=== PATIENT | male | born 1940 | race Caucasian/White ===

== ENCOUNTER 2019-05-04 11:09 | Inpatient (IN) | payer MEDICARE, SELFPAY ==
[2019-05-04] VITALS (11 sets, daily range): BP systolic 131–175; BP diastolic 86–105; PULSE 59–105; RESP 16–20; TEMP 36.4–36.6; O2SAT 96–99; BMI 28.9; BMI 28.4
--- NOTE | 2019-05-04 11:54 | CT_ITS ---
STUDY: CT BRAIN WITHOUT CONTRAST REASON FOR EXAM: Male, 78 years old. RADIATION DOSAGE (If Supplied By Facility): CTDIvol = ( 44.99 ) mGy, DLP = ( 796.11 ) mGycm TECHNIQUE: Transaxial CT imaging of the brain was performed without administration of intravenous contrast material. Individualized dose optimization techniques were used for this CT. COMPARISON: No relevant priors. FINDINGS: Normal soft tissue structures. Normal calvarium. There is mild cerebral atrophy with widening of the extra-axial spaces and ventricular dilatation. Normal white matter tracts of the cerebral hemispheres. There are small punctate calcifications of the basal ganglia which are seen in the aging brain as a normal variant. Normal brainstem. Normal cerebellum. There is no intracranial hemorrhage. There are no findings of an acute ischemic infarction. Atherosclerotic calcification of the cavernous portions of the internal carotid arteries bilaterally. Normal visualized paranasal sinuses. CT/Brain/Head without Contrast IMPRESSION: Chronic involutional changes of the brain. Electronically Signed: Joe Mcginnis, at 14:08 EDT , Service support ,
--- NOTE | 2019-05-04 11:54 | ED.VISSUMM ---
- ER Visit Summary Date of Service: 05/04/19 Chief Complaint: Syncope History of Present Illness: The patient is a 78 M who presents with a syncopal episode that occurred today. Patient was checking out at his orthopedic physician's office when he felt nauseated and broke out into a sweat. Patient states he sat down and then became unresponsive. Patient was found by and staff in the orthopedic office and was unresponsive. EMS arrived on scene and was unable to palpate a pulse. They stated the patient was breathing the entire time they saw him. EMS states he then woke up and has been awake and alert ever since. states his last approximate 5 to 10 minutes. CPR was never initiated. Currently, patient denies any symptoms. Physical Examination: Vital signs are stable. Patient is afebrile. Patient is in no acute distress. Oral mucosa is pink and moist. Neck is supple. Trachea is midline. There is no JVD noted. Heart was regular rate and rhythm. Lungs are clear and equal bilateral. Abdomen is soft. Bowel sounds are normal. There is no tenderness. There is no guarding noted. Skin is warm dry. Cranial nerves II through XII are intact. There are no focal motor or sensory deficits noted. The remaining physical exam is within normal limits. Test Results: EKG showed normal sinus rhythm with a rate of 61. There are no acute ST or T wave changes. BC, comprehensive metabolic profile, PT with INR, troponin were obtained and were all within normal limits. Urinalysis shows evidence of urinary tract infection with leukocyte esterase of 500 point, positive nitrites, and greater than [address] scan of the brain was obtained and was negative. PA and lateral chest x-ray was obtained and was negative. CTA of the chest was obtained and does not show any evidence of pulmonary embolism. Emergency Department Course and Treatment: Patient was stable during his emergency department stay. Urine culture was ordered. Patient was started on Rocephin. Given his syncopal episode with loss of pulses, I feel patient should be admitted to the hospital for further evaluation of his syncope. Case was discussed with the hospitalist. Patient will be admitted to the hospital. Disposition: Admit to hospital Impression: 1. Syncope 2. Urinary tract infection This note was generated with Myworldwallation software. It may contain incorrect words, spelling, and punctuation that were not noted in review of the chart prior to signing ED Disposition - Plan for ED Patient: Disposition: Acute Care Hospital [facility] Diagnosis: Syncope and collapse, Urinary tract infection Referrals: Joon Blunt MD [Primary Care Provider] -
--- NOTE | 2019-05-04 11:55 | EKG12_ITS ---
Test Reason : SYNCOPE Blood Pressure : / mmHG Vent. Rate : 061 BPM Atrial Rate : 061 BPM P-R Int : 200 ms QRS Dur : 072 ms QT Int : 432 ms P-R-T Axes : 000 003 049 degrees QTc Int : 434 ms Normal sinus rhythm Normal ECG No previous ECGs available Confirmed by CHRISTA MUSTAFA ([id number]), city editor IRAM GONZALES ([id number]) on 05/17/2019 2:03:32 PM Referred By: Sergio Schulz Confirmed By:CHRISTA MUSTAFA
--- NOTE | 2019-05-04 11:56 | CT_ITS ---
STUDY: CTA CHEST REASON FOR EXAM: Male, 78 years old. Syncopal episode. RADIATION DOSAGE (If Supplied By Facility): CTDIvol = ( 13.80 ) mGy, DLP = ( 487.96 ) mGycm TECHNIQUE: The examination was performed with the intravenous administration of 100ML IV Isovue 370. Post-processing of the angiographic images was performed, with multiplanar reformation and 3D reconstruction. Individualized dose optimization techniques were used for this CT. COMPARISON: None. FINDINGS: Normal enhancement of the main pulmonary artery and right and left pulmonary arteries. Normal enhancement of the bilateral peripheral pulmonary arteries. There is no demonstrated pulmonary embolism. Normal thoracic aorta and visualized great vessels. There is no demonstrated aortic dissection. There are calcifications of the coronary arteries. Normal mediastinum. Normal hilar regions. Normal visualized trachea and bronchi. The lungs are well expanded. Normal pulmonary parenchyma. Normal pleura. Normal chest wall structures. There are degenerative changes of thoracic spine. Normal visualized upper abdomen. CT/CTA Chest W/WO Contrast IMPRESSION: No acute abnormality is seen. Electronically Signed: Joe Mcginnis, at 14:18 EDT , Service support ,
[2019-05-04] MEDS: 0.9% Normal Saline 1,000 ML 1000 ML IV (12:23)
[2019-05-04] MEDS: Morphine 4 MG/ML Syringe IV (12:40)
[2019-05-04 13:11] LABS: Absolute Lymphocyte Count 1.23 X10^3/uL (0.83-4.51); Absolute Neutrophil Count 7.7 X10^3/uL (2.0-7.7); Basophil# 0.06 X10^3/uL; Basophil% 0.6 % (0-1); Eosinophil# 0.02 X10^3/uL; Eosinophils% 0.2 % (0-5); Hematocrit 43.2 % (40-54); Hemoglobin 14.4 g/dL (13.0-16.5); Lymphocyte # 1.23 X10^3/ul (4.0); Lymphocyte % 12.6 % (19-41); Mean Corp Hgb Conc 33.3 g/dL (32-36); Mean Corpuscular Hgb 28.7 pg (27.0-32.0); Mean Corpuscular Volume 86.2 fL (80-94); Mean Platelet Vol. 9.5 fl (6.2-12.0); Monocyte# 0.74 X10^3/uL; Monocyte% 7.6 % (0-10); NRBC Flagged by Analyzer 0 % (0-5); Neutrophil # 7.67 X10^3/uL (2.7-7.7); Neutrophil % 78.2 % (47-70); Platelet Count 247 K/mm3 (150-450); RBC Distribution Width CV 12.3 % (11.6-14.6); RBC Distribution Width SD 38.5 fl (35.1-43.9); Red Blood Count 5.01 M/mm3 (4.6-6.2); White Blood Count 9.8 K/mm3 (4.4-11.0)
[2019-05-04 13:26] LABS: ALB/GLOB Ratio 1.2 RATIO (0.9-2.4); AST(SGOT) 10 U/L (15-37); Alanine Aminotransfer ALT/SGPT 23 U/L (16-61); Albumin, Serum 3.5 g/dL (3.2-5.0); Alkaline Phosphatase 42 U/L (45-117); Anion Gap 7 (5-15); BUN 14 mg/dL (7-18); BUN/Creat Ratio 15.5 RATIO (10-20); Calcium,Total 8.3 mg/dL (8.5-10.1); Chloride 104 mmol/L (98-107); EST Glomerular Filtration Rate 86 mL/min (>60); Est Glom Filt Rate - Afr Amer 105 mL/min (>60); Estimated Creatinine Clearance 69.85 ml/min; Globulin 2.9 g/dL (2.2-4.2); Glucose 106 mg/dL (74-106); Potassium 4.5 mmol/L (3.5-5.1); Protein, Total 6.4 g/dL (6.4-8.2); Sodium Level 138 mmol/L (136-145)
[2019-05-04 13:27] LABS: Partial Thromboplast Time 26.3 Seconds (24.1-36.2); Prothrombin Time (Protime)PT. 13.2 SECONDS (11.7-14.9)
--- NOTE | 2019-05-04 14:00 | RAD_ITS ---
STUDY: X-RAY CHEST REASON FOR EXAM: Male, 78 years old. Shortness of breath. TECHNIQUE: PA and lateral views of the chest. COMPARISON: None. FINDINGS: EKG electrodes are seen. The lungs are clear and expanded. There is no demonstrated pleural abnormality. Normal size heart. Normal mediastinum and celsa. Normal visualized pulmonary arteries. There is atherosclerotic tortuosity of the aortic arch and descending thoracic aorta. There are diffuse degenerative changes of the visualized thoracic spine. Normal visualized ribs, clavicles, and shoulders. There is no demonstrated abnormality of the visualized soft tissue structures of the upper abdomen. RAD/Chest PA and Lateral IMPRESSION: No acute abnormality is seen. Electronically Signed: Joe Mcginnis, at 14:37 EDT , Service support ,
[2019-05-04 14:25] LABS: Mucous, Urine 0 SEEN /hpf (<or=2+); Red Blood Cells-Urine 0 SEEN /hpf (0-5); Squamous Epithelial Cells - UA 0 SEEN /hpf (0-5)
[2019-05-04 14:26] LABS: Color, Urine Yellow (Yellow); Glucose, Dipstick Normal (Normal); Ketone-Dipstick Negative (Negative); Leukocyte Esterase-Dipstick 500 /ul (Negative); Nitrite-Dipstick Positive (Negative); Occult Blood-Urine 50 /ul (Negative); Protein-Dipstick 30 mg/dl (Negative); Urine Bilirubin Dipstick Negative (Negative); Urine Clarity Sl. Cloudy (Clear); Urine Urobilinogen Normal (Normal)
[2019-05-04 14:37] LABS: Bacteria RARE /hpf (None Seen); White Blood Cells >100 SEEN /hpf (0-5)
[2019-05-04] MEDS: Ceftriaxone 1 GM/50 ML BAG IV (15:18)
--- NOTE | 2019-05-04 16:37 | HP.PCM_ITS ---
<Niranjan Heart - Last Filed: 05/04/19 16:37> Problem List (1) Urinary tract infection Status: Acute (2) Syncope and collapse Status: Acute (3) DDD (degenerative disc disease) Status: Chronic (4) BPH (benign prostatic hyperplasia) Status: Chronic History of Present Illness Date of Admission: 05/04/19 Chief Complaint: syncope The patient is a 78 year old M with past medical history of chronic back pain, BPH, recent opiate induced constipation and urinary retention, who presents to the emergency room with a syncopal episode. The patient was in to see the orthopedic surgeons today for ongoing issues with sciatica related to degenerative disc disease. While he was in the office waiting to check out he became nauseous and felt like he needed to sit down. After sitting down he slumped over in the chair and became unresponsive. The estimates he was in the chair somewhere between 5 to 10 minutes unresponsive. The emergency squad was called who lowered him to the floor. After he was lowered he came conscious and return to his normal state. The patient was brought to the emergency room a nd was found to have a urinary tract infection. He does admit that he has had dysuria since his last catheter was placed. Again he had a catheter placed when he developed urinary retention while on opiate pain medications for his back. He was referred to urology as an outpatient he left the Shirley in for a week, it was removed last . Also of note he is currently on Valtrex for left right lower extremity zoster rash. [] Past Medical History Past Medical History (Chronic Problems): Chronic Problems DDD (degenerative disc disease) (Chronic) BPH (benign prostatic hyperplasia) (Chronic) Allergies No Known Allergies Allergy (Verified 05/04/19 11:10) Home Medications: Ambulatory Orders Medication Instructions Recorded Acetaminophen [Tylenol Extra 500 - 1,000 mg PO Q8H PRN 05/04/19 Strength] Cholecalciferol (Vitamin D3) 400 unit PO DAILY 05/04/19 [Vitamin D3] Diazepam [Valium] 10 mg PO UD PRN 05/04/19 Docusate Sodium [Stool Softener] 200 mg PO DAILY 05/04/19 Finasteride [Proscar] 5 mg PO DAILY 05/04/19 Gabapentin [Neurontin] 300 mg PO BID 05/04/19 Magnesium Oxide [Magnesium] 500 mg PO DAILY 05/04/19 Niacin 500 mg PO DAILY 05/04/19 Polyethylene Glycol 3350 [Miralax] 17 gm PO DAILY 05/04/19 Valacyclovir HCl [Valtrex] 2,000 mg PO DAILY 05/04/19 Surgical History: tonsillectomy Psychiatric History: No pertinent psych hx Lives: Spouse/ Significant Other Smoking Status: Former smoker Tobacco Use: Chew, Pipe Alcohol: None Drugs: None - *Family History Maternal History Items: Heart Disease Paternal History Items: - Review of Systems Constitutional: Denies: Chills, Fever, Weight Change HEENT: Denies: Head Aches, Sinus Congestion, Sinus Drainage Cardiovascular: Reports: Syncope. Denies: Chest Pain, Chest Pressure, Chest Tightness, Heaviness, Light Headedness, Palpitations Respiratory: Denies: Cough, Shortness of Breath, Shortness of breath at rest, Sputum production Gastrointestinal: Denies: Abdominal Pain, Nausea, Vomiting Genitourinary: Denies: Dysuria Musculoskeletal: Denies: Joint Pain, Joint Tenderness Skin: Reports: Rash - Right lower extremity with severe pain. Denies: Wounds Neurological: Denies: Numbness, Tingling, Focal weakness Psychiatric: Denies: Anxiety, Depression, Homicidal Ideations, Suicidal Ideations Hematologic/ Lymphatic: Denies: Easy Bruising, Easy Bleeding VTE Information - Inpt Only VTE Present on Admission: No VTE Mechan Device Prophylaxis: None VTE Pharm Prophylaxis ordered?: Yes Patient Problems: Active and Suspected Problems Syncope and collapse (Acute) Urinary tract infection (Acute) - Physical Exam General: Alert, Oriented x3, Cooperative HEENT: Atraumatic, PERRLA, EOMI, Normocephalic Neck: Supple, No JVD, Negative Carotid Bruits Lungs: Clear to auscultation, Normal air movement Cardiovascular: Regular rate, No murmurs Abdomen: Bowel Sounds Present, Soft, Non Tender Extremities: No edema, Capillary Refill Less than 3 Seconds Skin: No rashes, No breakdown, - - Zoster rash right lower extremity. Musculoskeletal: No Tenderness to Palpation of Joints or Extremities Neurological: Cranial nerves II-XII grossly intact Psych/Mental Status: Normal Affect, Appropriate Vital Signs Temp Pulse Resp BP Pulse Ox 97.8 F 79 20 H 147/98 H 97 05/04/19 11:10 05/04/19 15:00 05/04/19 15:00 05/04/19 15:00 05/04/19 15:00 Oxygen Delivery Method Room Air Weight: 201 lb 11.567 oz Body Mass Index (BMI) 28.9 Laboratory Tests Past 24 Hrs 05/04/19 05/04/19 05/04/19 12:50 12:50 12:50 WBC 9.8 RBC 5.01 Hgb 14.4 Hct 43.2 MCV 86.2 MCH 28.7 MCHC 33.3 RDW Std Deviation 38.5 RDW Coeff of [place]ine[place] 12.3 Plt Count 247 MPV 9.5 Immature Gran % (Auto) 0.800 Neut % (Auto) 78.2 H Lymph % (Auto) 12.6 L [place] % (Auto) 7.6 Eos % (Auto) 0.2 Baso % (Auto) 0.6 Absolute Neuts (auto) 7.7 Absolute Lymphs (auto) 1.23 Nucleated RBC % 0 PT 13.2 INR 1.0 APTT 26.3 Sodium 138 Potassium 4.5 Chloride 104 Carbon Dioxide 27.0 Anion Gap 7 BUN 14 Creatinine 0.90 Estim Creat Clear Calc 69.85 Est GFR (MDRD) Af Amer 105 Est GFR (MDRD) Non-Af 86 BUN/Creatinine Ratio 15.5 Glucose 106 Calcium 8.3 L Total Bilirubin 0.60 AST 10 L ALT 23 Alkaline Phosphatase 42 L Troponin I < 0.015 Total Protein 6.4 Albumin 3.5 Globulin 2.9 Albumin/Globulin Ratio 1.2 Urine Color Urine Clarity Urine pH Ur Specific [place] Urine Protein Urine Glucose (UA) Urine Ketones Urine Occult Blood Urine Nitrite Urine Bilirubin Urine Urobilinogen Ur Leukocyte Esterase Urine RBC Urine WBC Ur Squamous Epith Cells Urine Bacteria Urine Mucus 05/04/19 14:20 WBC RBC Hgb Hct MCV MCH MCHC RDW Std Deviation RDW Coeff of [place] Plt Count MPV Immature Gran % (Auto) Neut % (Auto) Lymph % (Auto) [place] % (Auto) Eos % (Auto) Baso % (Auto) Absolute Neuts (auto) Absolute Lymphs (auto) Nucleated RBC % PT INR APTT Sodium Potassium Chloride Carbon Dioxide Anion Gap BUN Creatinine Estim Creat Clear Calc Est GFR (MDRD) Af Amer Est GFR (MDRD) Non-Af BUN/Creatinine Ratio Glucose Calcium Total Bilirubin AST ALT Alkaline Phosphatase Troponin I Total Protein Albumin Globulin Albumin/Globulin Ratio Urine Color Yellow Urine Clarity Sl. Cloudy Urine pH 7.0 Ur Specific [place] 1.010 Urine Protein 30 H Urine Glucose (UA) Normal Urine Ketones Negative Urine Occult Blood 50 H Urine Nitrite Positive H Urine Bilirubin Negative Urine Urobilinogen Normal Ur Leukocyte Esterase 500 H Urine RBC 0 SEEN Urine WBC >100 SEEN Ur Squamous Epith Cells 0 SEEN Urine Bacteria RARE Urine Mucus 0 SEEN Assessment/Plan All Active Problems Syncope and collapse (Acute) Urinary tract infection (Acute) 1. Syncope-suspect secondary to vasovagal, urinary tract infection, urinary retention-provide Rocephin maintain on telemetry, EKG unremarkable, obtain echo in the morning. Check orthostatic vitals. 2. Recent urinary tract infection requiring catheterization secondary to opiate use-we will bladder scan, Place Shirley if necessary, follow-up with urology as an outpatient. 3. BPH-continue Proscar 4. Herpes zoster-right lower extremity rash, continue contact precautions and Valtrex, gabapentin for herpetic neuropathy 5. Chronic back pain, DDD-following Dr. Pierce as an outpatient, plans for MRI as an outpatient, PT OT as an outpatient. DVT prophylaxis: Lovenox DC planning: PT OT eval's given #5 This patient was seen by Niranjan Heart PA-C under the supervision of Doctor Zeus. <Sergio Schulz - Last Filed: 05/04/19 17:01> History of Present Illness The patient is a 78 year old M [] Past Medical History Allergies No Known Allergies Allergy (Verified 05/04/19 11:10) - Physical Exam Vital Signs Temp Pulse Resp BP Pulse Ox 97.9 F 76 16 175/95 H 99 05/04/19 16:57 05/04/19 16:57 05/04/19 16:57 05/04/19 16:57 05/04/19 16:57 Oxygen Delivery Method Room Air Weight: 91.5 kg Body Mass Index (BMI) 28.9 Laboratory Tests Past 24 Hrs 05/04/19 05/04/19 05/04/19 12:50 12:50 12:50 WBC 9.8 RBC 5.01 Hgb 14.4 Hct 43.2 MCV 86.2 MCH 28.7 MCHC 33.3 RDW Std Deviation 38.5 RDW Coeff of [place]ine[place] 12.3 Plt Count 247 MPV 9.5 Immature Gran % (Auto) 0.800 Neut % (Auto) 78.2 H Lymph % (Auto) 12.6 L [place] % (Auto) 7.6 Eos % (Auto) 0.2 Baso % (Auto) 0.6 Absolute Neuts (auto) 7.7 Absolute Lymphs (auto) 1.23 Nucleated RBC % 0 PT 13.2 INR 1.0 APTT 26.3 Sodium 138 Potassium 4.5 Chloride 104 Carbon Dioxide 27.0 Anion Gap 7 BUN 14 Creatinine 0.90 Estim Creat Clear Calc 69.85 Est GFR (MDRD) Af Amer 105 Est GFR (MDRD) Non-Af 86 BUN/Creatinine Ratio 15.5 Glucose 106 Calcium 8.3 L Total Bilirubin 0.60 AST 10 L ALT 23 Alkaline Phosphatase 42 L Troponin I < 0.015 Total Protein 6.4 Albumin 3.5 Globulin 2.9 Albumin/Globulin Ratio 1.2 Urine Color Urine Clarity Urine pH Ur Specific [place] Urine Protein Urine Glucose (UA) Urine Ketones Urine Occult Blood Urine Nitrite Urine Bilirubin Urine Urobilinogen Ur Leukocyte Esterase Urine RBC Urine WBC Ur Squamous Epith Cells Urine Bacteria Urine Mucus 05/04/19 14:20 WBC RBC Hgb Hct MCV MCH MCHC RDW Std Deviation RDW Coeff of [place] Plt Count MPV Immature Gran % (Auto) Neut % (Auto) Lymph % (Auto) [place] % (Auto) Eos % (Auto) Baso % (Auto) Absolute Neuts (auto) Absolute Lymphs (auto) Nucleated RBC % PT INR APTT Sodium Potassium Chloride Carbon Dioxide Anion Gap BUN Creatinine Estim Creat Clear Calc Est GFR (MDRD) Af Amer Est GFR (MDRD) Non-Af BUN/Creatinine Ratio Glucose Calcium Total Bilirubin AST ALT Alkaline Phosphatase Troponin I Total Protein Albumin Globulin Albumin/Globulin Ratio Urine Color Yellow Urine Clarity Sl. Cloudy Urine pH 7.0 Ur Specific [place] 1.010 Urine Protein 30 H Urine Glucose (UA) Normal Urine Ketones Negative Urine Occult Blood 50 H Urine Nitrite Positive H Urine Bilirubin Negative Urine Urobilinogen Normal Ur Leukocyte Esterase 500 H Urine RBC 0 SEEN Urine WBC >100 SEEN Ur Squamous Epith Cells 0 SEEN Urine Bacteria RARE Urine Mucus 0 SEEN Assessment/Plan This patient was seen in conjunction with Niranjan Heart PA-C . I have independently interviewed and examined the patient and reviewed pertinent historical, laboratory, and other data. Please refer to Niranjan Heart PA-C note for details of this patient's presentation, findings, and recommendations. I have reviewed Niranjan Heart PA-C note and concur with documented findings. In brief, patient is a 78-year-old gentleman admitted following a syncopal episode Physical Examination: GENERAL: cooperative HEENT: Atraumatic; EYES; Anicteric, Normal Conjunctiva NECK; supple, normal thyroid, RESPIRATORY: Diminished to auscultation CARDIOVASCULAR: Regular S1 S2, GI: soft, non-tender, normoactive bowel sounds, : No Renal angle tenderness; EXTREMITIES: No edema, no clubbing, no cyanosis. NEURO: Awake; no lateralizing signs. PSYCH; Normal affect Assessment: 1. Syncopal episode 2. Acute cystitis 3. BPH 4. Recent herpes zoster involving the right lower extremity 5. Degenerated joint disease with chronic back pain 6. Elevated blood pressure Recommendations: 1. I have discussed the results of my overview and impressions with the patient 2. Options for management were reviewed Code Visit OBSV E&M: 29801 Initial observation care L3
[2019-05-04] MEDS: Lisinopril 5 MG Tablet PO (18:50)
[2019-05-04] MEDS: Tamsulosin HCl 0.4 MG Capsule PO (18:50)
[2019-05-04] MEDS: Acetaminophen 500 MG Tablet 1000 MG PO (19:12)
[2019-05-04] MEDS: Docusate Sodium 100 MG Capsule 200 MG PO (21:32)
[2019-05-04] MEDS: Gabapentin 300 MG Capsule PO (21:32)
[2019-05-04] MEDS: Polyethylene Glycol 3350 17 GM PACKET PO (21:32)
[2019-05-05] VITALS (7 sets, daily range): BP systolic 133–171; BP diastolic 89–112; PULSE 63–88; RESP 17–18; TEMP 36.4–36.9; O2SAT 97–98
--- NOTE | 2019-05-05 01:45 | PCM.HOSP.N ---
Hospitalist Note Patient admitted with unresponsive episode. Syncope. Headache telemetry reviewed. Patient having 5-6 beats of V. tach. First 1 about 21;55, 4 beats and then again 5 beats at 23:46. Patient had troponin negative. Denies any chest pain or shortness of breath. Blood pressure is high 175/95. Earlier orthostatic vital shows 163/100 on supine patient was dropped to 142/96 on standing. Heart rate went up from 95 to 105. Assessment and plan Syncope with recurrent PVCs/nonsustained V. tach. EKG shows normal sinus rhythm with sinus arrhythmia. Started on IV fluid normal saline 100 mils per hour for 1 L. Metoprolol 12.5 mg p.o. twice daily. Lisinopril 10 mg now and then once daily. Patient is scheduled for 2D echo. K is 4.5 magnesium and phosphorus ordered. Laboratory Results 05/04/19 12:50: WBC 9.8, RBC 5.01, Hgb 14.4, Hct 43.2, MCV 86.2, MCH 28.7, MCHC 33.3, RDW Std Deviation 38.5, RDW Coeff of [place] 12.3, Plt Count 247, MPV 9.5, Immature Gran % (Auto) 0.800, Neut % (Auto) 78.2 H, Lymph % (Auto) 12.6 L, [place] % (Auto) 7.6, Eos % (Auto) 0.2, Baso % (Auto) 0.6, Absolute Neuts (auto) 7.7, Absolute Lymphs (auto) 1.23, Nucleated RBC % 0 05/04/19 12:50: PT 13.2, INR 1.0, APTT 26.3 05/04/19 12:50: Sodium 138, Potassium 4.5, Chloride 104, Carbon Dioxide 27.0, Anion Gap 7, BUN 14, Creatinine 0.90, Estim Creat Clear Calc 69.85, Est GFR (MDRD) Af Amer 105, Est GFR (MDRD) Non-Af 86, BUN/Creatinine Ratio 15.5, Glucose 106, Calcium 8.3 L, Total Bilirubin 0.60, AST 10 L, ALT 23, Alkaline Phosphatase 42 L, Troponin I < 0.015, Total Protein 6.4, Albumin 3.5, Globulin 2.9, Albumin/Globulin Ratio 1.2 05/04/19 14:20: Urine Color Yellow, Urine Clarity Sl. Cloudy, Urine pH 7.0, Ur Specific [place] 1.010, Urine Protein 30 H, Urine Glucose (UA) Normal, Urine Ketones Negative, Urine Occult Blood 50 H, Urine Nitrite Positive H, Urine Bilirubin Negative, Urine Urobilinogen Normal, Ur Leukocyte Esterase 500 H, Urine RBC 0 SEEN, Urine WBC >100 SEEN, Ur Squamous Epith Cells 0 SEEN, Urine Bacteria RARE, Urine Mucus 0 SEEN
[2019-05-05] MEDS: Lisinopril 10 MG Tablet PO (01:52)
[2019-05-05] MEDS: Metoprolol Tartrate 25 MG Tablet 12.5 MG PO ×2 (02:52→09:09)
[2019-05-05] MEDS: Acetaminophen 500 MG Tablet 1000 MG PO ×3 (03:02→15:52)
--- NOTE | 2019-05-05 05:55 | ECHOD_ITS ---
Reason For Study: SYNCOPE Procedure This was a 2D Doppler, Color Flow transthoracic echocardiogram. The study was technically difficult. Pt was laying supine for exam due to hip pain. Exam performed portable in patient room. Left Ventricle Normal size and thickness. The estimated ejection fraction is 65 %. Stage 1 diastolic dysfunction. No regional wall motion abnormalities noted. Right Ventricle Normal size and thickness. Normal systolic function. Atria Normal left atrium. Normal right atrium. Normal atrial septum. Mitral Valve The mitral valve is structurally normal. No prolapse or stenosis seen. Tricuspid Valve Normal tricuspid valve. Mild (1+) tricuspid valve insufficiency. Right ventricular systolic pressure estimated to be 32 mmHg. Aortic Valve Trisinus/trileaflet aortic valve. Mild diffuse aortic valve thickening. There is no aortic stenosis. Pulmonic Valve Normal pulmonic valve. Great Vessels Normal aortic root. Normal arch. Normal inferior vena cava. Inferior vena cava collapse with sniff. Pericardium/Pleural No pericardial effusion. MMode/2D Measurements & Calculations LVIDd: 5.0 cm IVSd: 0.91 cm LVOT diam: 2.0 cm LVIDs: 3.4 cm LVPWd: 1.2 cm LVOT area: 3.0 cm2 RVDd: 3.5 cm FS: 30.8 % Ao root diam: 4.2 cm LAV(MOD-bp): 62.2 ml LA A4 area: 11.5 cm2 LAV(MOD-bp) Indexed: 29.9 ml/m2 LAV(MOD-sp2): 91.3 ml LAV(MOD-sp4): 25.3 ml LA dimension(2D): 3.8 cm RA A4 area: 11.1 cm2 Time Measurements MV dec time: 0.23 sec Doppler Measurements & Calculations MV E max isaiah: 64.9 cm/sec Lat Peak E' Isaiah: 14.0 cm/sec Med Peak E' Isaiah: 9.7 cm/sec MV A max isaiah: 76.6 cm/sec E/E' lat: 4.6 E/E' med: 6.7 MV E/A: 0.85 Ao V2 max: 174.1 cm/sec LV V1 max: 166.1 cm/sec PA V2 max: 77.8 cm/sec Ao max P.1 mmHg LV V1 max P.0 mmHg SHAHZAD(V,D): 2.9 cm2 PI end-d isaiah: 87.8 cm/sec TR max isaiah: 252.3 cm/sec TR max P.5 mmHg Interpretation Summary The estimated ejection fraction is 65 %. Stage 1 diastolic dysfunction. Mild (1+) tricuspid valve insufficiency. Right ventricular systolic pressure estimated to be 32 mmHg. The study was technically difficult. There is no comparison study available. Ordering Physician: Niranjan Heart Referring Physician: KAYA COWAN Performed By: Mary Ray, YASMIN, RVT
[2019-05-05 06:54] LABS: Magnesium 2.2 mg/dL (1.6-2.6); Phosphorus 3.9 mg/dL (2.5-4.9)
[2019-05-05] MEDS: Gabapentin 300 MG Capsule PO (09:06)
[2019-05-05] MEDS: Finasteride 5 MG Tablet PO (09:06)
[2019-05-05] MEDS: Magnesium Oxide 400 MG Tablet PO (09:06)
[2019-05-05] MEDS: Enoxaparin 40 MG/0.4 ML Syringe SC (09:06)
[2019-05-05] MEDS: Polyethylene Glycol 3350 17 GM PACKET PO (09:08)
[2019-05-05] MEDS: Docusate Sodium 100 MG Capsule 200 MG PO (09:09)
--- NOTE | 2019-05-05 10:23 | CON.PCM_ITS ---
Problem List (1) Ventricular tachycardia (paroxysmal) Status: Acute (2) Syncope and collapse Status: Acute Reason for Consult Date of Consultation: 05/05/19 History of Present Illness: The patient is a 78 year old M with a history of back pain with chronic narcotic usage, BPH, and who presented to [facility] Emergency department on 05/04/2019 for a syncopal episode at orthopedic office. Patient was checking out when he felt nauseated and diaphoretic. He went to sit down and had a syncopal episode. EMS was called. Per ER note patient did not stop breathing but it is mentioned that he did not have a pulse. No CPR was initiated. He was out for 5-10 minutes. His ECG in the ER showed sinus rhythm without acute ST changes. His brain and chest CT scan were negative. His urinalysis was positive and he was started on Rocephin. He was admitted for further evaluation. Yesterday evening he had short runs of ventricular tachycardia. He was started on low dose metoprolol tartrate 12.5mg PO BID and lisinopril 10 mg PO daily. Cardiology was consulted for further evaluation of syncope and paroxysmal ventricular tachycardia. Past Medical History Allergies/Adverse Reactions: Allergies No Known Allergies Allergy (Verified 05/04/19 11:10) Home Medications: Ambulatory Orders Medication Instructions Recorded Acetaminophen [Tylenol Extra 500 - 1,000 mg PO Q8H PRN 05/04/19 Strength] Cholecalciferol (Vitamin D3) 400 unit PO DAILY 05/04/19 [Vitamin D3] Diazepam [Valium] 10 mg PO UD PRN 05/04/19 Docusate Sodium [Stool Softener] 200 mg PO DAILY 05/04/19 Finasteride [Proscar] 5 mg PO DAILY 05/04/19 Gabapentin [Neurontin] 300 mg PO BID 05/04/19 Magnesium Oxide [Magnesium] 500 mg PO DAILY 05/04/19 Polyethylene Glycol 3350 [Miralax] 17 gm PO DAILY 05/04/19 RX: Niacin 500 mg PO DAILY 05/04/19 Valacyclovir HCl [Valtrex] 2,000 mg PO DAILY 05/04/19 Past Medical History (Chronic Problems): Chronic Problems DDD (degenerative disc disease) (Chronic) BPH (benign prostatic hyperplasia) (Chronic) Surgical History: tonsillectomy Psychiatric History: No pertinent psych hx - *Family History Maternal History Items: Heart Disease Paternal History Items: - Lives: Spouse/ Significant Other Smoking Status: Former smoker Tobacco Use: Chew, Pipe Alcohol: None Drugs: None Objective: Vital Signs Temp Pulse Resp BP Pulse Ox 98.4 F 88 18 139/90 H 97 05/05/19 10:18 05/05/19 10:18 05/05/19 10:18 05/05/19 10:18 05/05/19 10:18 Oxygen Delivery Method Room Air Weight: 198 lb 6.4 oz Body Mass Index (BMI) 28.4 Orthostatic Vital Signs Start: 05/04/19 18:41 Freq: q24h Status: Active Protocol: Activity Type Activity Date Activity User E-Sign Co-Sign Detail Recorded Client Recorded Date Recorded By Document 05/04/19 18:41 MARY [id number] 05/04/19 18:44 MARY 05/04/19 18:41 Orthostatic Vitals Standing -Blood Pressure (90/60-120/80) 142/96 H -Extremity Use Left Arm -Pulse Rate (60-100) 105 H Sitting -Blood Pressure (90/60-120/80) 169/105 H -Extremity Use Left Arm -Pulse Rate (60-100) 95 Lying -Blood Pressure (90/60-120/80) 163/100 H -Extremity Use Left Arm Intake and Output for Last 24 Hours 05/03/19 05/04/19 05/05/19 23:59 23:59 23:59 Intake Total 240 / 720 720 / 720 Output Total 1350 / 1610 260 / 260 Balance -1110 / -890 460 / 460 05/04/19 12:50: WBC 9.8, RBC 5.01, Hgb 14.4, Hct 43.2, MCV 86.2, MCH 28.7, MCHC 33.3, Plt Count 247, MPV 9.5, Immature Gran % (Auto) 0.800, Neut % (Auto) 78.2 H , Lymph % (Auto) 12.6 L, [place] % (Auto) 7.6, Eos % (Auto) 0.2, Baso % (Auto) 0.6, Absolute Neuts (auto) 7.7, Nucleated RBC % 0 05/04/19 12:50: PT 13.2, INR 1.0, APTT 26.3 05/04/19 12:50: Sodium 138, Potassium 4.5, Chloride 104, Carbon Dioxide 27.0, Anion Gap 7, BUN 14, Creatinine 0.90, Est GFR (MDRD) Af Amer 105, Est GFR (MDRD) Non-Af 86, BUN/Creatinine Ratio 15.5, Glucose 106, Calcium 8.3 L, Total Bilirubin 0.60, Troponin I < 0.015 05/04/19 14:20: Urine Color Yellow, Urine Clarity Sl. Cloudy, Urine pH 7.0, Ur Specific [place] 1.010, Urine Protein 30 H, Urine Glucose (UA) Normal, Urine Ketones Negative, Urine Occult Blood 50 H, Urine Nitrite Positive H, Urine Bilirubin Negative, Urine Urobilinogen Normal, Ur Leukocyte Esterase 500 H, Urine RBC 0 SEEN, Urine WBC >100 SEEN 05/05/19 05:50: Phosphorus 3.9, Magnesium 2.2 Rhythm: EKG: ECHO: Stress Test: Cardiac Cath: PCI: CT Surgery: Holter monitor: EPS: PPM: CXR: Chest CT Scan: Assessment/Plan 1. Ventricular tachycardia Patient's telemetry revealed 2 episodes of paroxysmal atrial fibrillation ranging from about 4-6 beats. He was started on low-dose beta-pam and lisinopril. His blood pressure around that time was noted to be elevated. His troponin was negative. His electrolytes were within normal limits. An echocardiogram was ordered and results are currently pending. Patient denies any episodes of chest pain or shortness of breath weeks prior to syncopal episode or just prior to syncopal episode. He will undergo thyroid evaluation. He will undergo stress echocardiogram to evaluate ventricular tachycardia further. Based on results of his echocardiogram and stress test further recommendation will be made. 2. Syncope Patient's urinalysis reveals positive for a UTI. He does acknowledge with his spinal stenosis and right hip discomfort his p.o. intake has been less than usual. This may be contributing to his syncopal episode. He does acknowledge multiple pain medications previously and this has resulted in urinary retention and constipation and has had multiple Shirley catheter placements. This may be source of his initial UTI. Thank you for allowing us to participate in the patients plan of care, if you have any questions please do not hesitate to call. This note was generated using a voice recognition system and there may be incorrect words, spelling or punctuation that were not noted when reviewing the office note prior to saving.
--- NOTE | 2019-05-05 11:17 | STEWCON_ITS ---
Reason For Study: [facility] Stress Results Protocol: Dobutamine with definity Maximum Predicted HR: 142 bpm Target HR: 121 bpm % Maximum Predicted HR: 86 % DurationHeart Rate Stage (mm:ss) (bpm) BP Dose Comment BASELINE 55 155/85 STAGE 1 3:50 62 149/84 10.00 STAGE 2 3:00 88 169/99 20.00 STAGE 3 3:00 109 180/94 30.00 STAGE 4 2:30 122 127/59289.00 RECOVERY 91 143/86 6 CC DEFINITY TOTAL FOR TEST Stress Duration: 12:20 mm:ss Maximum Stress HR: 122 bpm Baseline Echocardiogram Findings The estimated ejection fraction is 65 %. Stress Echo Wall motion Data Resting WM Intermediate WM Stress WM Resting Wall Motion Wall Motion Stress No regional wall motion No regional wall motion abnormalities noted. abnormalities noted. EKG Data The baseline ECG displays normal sinus rhythm. The patient was titrated from 10 mcg to a maximum of 40 mcg of dobutamine during the stress. The maximum heart rate attained was 121 beats per minute. This was 85% of maximum predicted heart rate. During dobutamine infusion, there were no ST or T wave changes noted to suggest ischemia. No clinical angina was noted. Interpretation Summary The estimated ejection fraction is 65 %. Normal, adequate, dobutamine echocardiogram. Negative for ischemia by EKG and echocardiographic criteria. No anginal symptoms noted. No arrhythmias noted. Final LVEF is 75%. Test terminated due to attainment target heart rate. Hypertensive blood pressure response to dobutamine. Decreased sensitivity due to poor echo windows requiring Definity agent. No complications. The study was technically difficult. Contrast injection was performed. Ordering Physician: Johan Rico Referring Physician: Sergio Schulz Performed By: Mary Ray, YASMIN, RVT
--- NOTE | 2019-05-05 14:06 | PN_ITS ---
Patient Problems: Active and Suspected Problems Syncope and collapse (Acute) Urinary tract infection (Acute) Ventricular tachycardia (paroxysmal) (Acute) - Physical Exam Vital Signs Temp Pulse Resp BP Pulse Ox 98.4 F 88 18 139/90 H 97 05/05/19 10:18 05/05/19 10:18 05/05/19 10:18 05/05/19 10:18 05/05/19 10:18 Oxygen Delivery Method Room Air Weight: 198 lb 6.4 oz Body Mass Index (BMI) 28.4 Orthostatic Vital Signs Start: 05/04/19 18:41 Freq: q24h Status: Active Protocol: Activity Type Activity Date Activity User E-Sign Co-Sign Detail Recorded Client Recorded Date Recorded By Document 05/04/19 18:41 MARY [id number] 05/04/19 18:44 MARY 05/04/19 18:41 Orthostatic Vitals Standing -Blood Pressure (90/60-120/80) 142/96 H -Extremity Use Left Arm -Pulse Rate (60-100) 105 H Sitting -Blood Pressure (90/60-120/80) 169/105 H -Extremity Use Left Arm -Pulse Rate (60-100) 95 Lying -Blood Pressure (90/60-120/80) 163/100 H -Extremity Use Left Arm Intake and Output for Last 24 Hours 05/03/19 05/04/19 05/05/19 23:59 23:59 23:59 Intake Total 240 / 720 1200 / 1200 Output Total 1350 / 1610 260 / 260 Balance -1110 / -890 940 / 940 Microbiology Past 72 Hours 05/04/19 14:20 Urine Culture - Preliminary Urine, Clean Catch GNR lactose cut off saw tender metal Laboratory Tests Past 24 Hrs 05/04/19 05/05/19 14:20 05:50 Phosphorus 3.9 Magnesium 2.2 Urine Color Yellow Urine Clarity Sl. Cloudy Urine pH 7.0 Ur Specific [place] 1.010 Urine Protein 30 H Urine Glucose (UA) Normal Urine Ketones Negative Urine Occult Blood 50 H Urine Nitrite Positive H Urine Bilirubin Negative Urine Urobilinogen Normal Ur Leukocyte Esterase 500 H Urine RBC 0 SEEN Urine WBC >100 SEEN Ur Squamous Epith Cells 0 SEEN Urine Bacteria RARE Urine Mucus 0 SEEN Medical Necessity - Tobacco Use Smoking Status: Former smoker Tobacco Use: Chew, Pipe Assessment/Plan All Active Problems Syncope and collapse (Acute) Urinary tract infection (Acute) Ventricular tachycardia (paroxysmal) (Acute) 1. Syncope-nonsustained V. tach on the monitor overnight. Cardiology was consulted. Provide Rocephin maintain on telemetry, EKG unremarkable. Echo shows ejection fraction of 65% with stage I diastolic dysfunction, RVSP is 32 mmHg, 1+ TVI. -Stress echo pending. -Trop neg. 2. UTI-Rocephin, follow cultures. 3. Recent urinary retention requiring catheterization secondary to opiate use- retaining approximately 260 cc yesterday, Flomax added to his regimen. 4. BPH-continue Proscar, Flomax 5. Hypertension-continue meds as currently ordered. Will need prescriptions at discharge. 6. Herpes zoster-right lower extremity rash, continue contact precautions and Valtrex, gabapentin for herpetic neuropathy 7. Chronic back pain, DDD-following Dr. Pierce as an outpatient, plans for MRI as an outpatient, PT OT as an outpatient. DVT prophylaxis: Lovenox DC planning: PT OT eval's given #7 This patient was seen by Niranjan Heart PA-C under the supervision of Doctor Schulz.
--- NOTE | 2019-05-05 15:09 | PCM.DC ---
- Discharge Diagnoses Current Active Problems: Current Active and Chronic Problems Syncope and collapse (Acute) Urinary tract infection (Acute) DDD (degenerative disc disease) (Chronic) BPH (benign prostatic hyperplasia) (Chronic) Ventricular tachycardia (paroxysmal) (Acute) You will use the following diet at home:: Cardiac Your food should be the consistency of: Regular Your liquids should be the consistency of: Regular/Thin Discharge Activity: Return to Normal Activity Allergies/Adverse Reactions: Allergies No Known Allergies Allergy (Verified 05/04/19 11:10) Medications to take at Discharge Acetaminophen [Tylenol Extra Strength] 500 - 1,000 mg PO Q8H PRN 05/04/19 Cholecalciferol (Vitamin D3) [Vitamin D3] 400 unit PO DAILY 05/04/19 Diazepam [Valium] 10 mg PO UD PRN 05/04/19 Docusate Sodium [Stool Softener] 200 mg PO DAILY 05/04/19 Finasteride [Proscar] 5 mg PO DAILY 05/04/19 Gabapentin [Neurontin] 300 mg PO BID 05/04/19 Magnesium Oxide [Magnesium] 500 mg PO DAILY 05/04/19 Niacin 500 mg PO DAILY 05/04/19 Polyethylene Glycol 3350 [Miralax] 17 gm PO DAILY 05/04/19 Valacyclovir HCl [Valtrex] 2,000 mg PO DAILY 05/04/19 Cefdinir [Omnicef [equiv]] 300 mg PO Q12H #12 cap 05/05/19 Lisinopril [Zestril] 10 mg PO DAILY #30 tab 05/05/19 Metoprolol Tartrate [Lopressor (beta pam)] 12.5 mg PO BID #30 tab 05/05/19 Tamsulosin HCl [Flomax] 0.4 mg PO DAILY@1730 #30 cap 05/05/19 The following prescriptions were given: Tamsulosin HCl [Flomax] 0.4 mg PO DAILY@1730 #30 cap Transmission Status: Pending to [facility] Metoprolol Tartrate [Lopressor (beta pam)] 12.5 mg PO BID #30 tab Transmission Status: Pending to [facility] [address] [facility] Cefdinir [Omnicef [equiv]] 300 mg PO Q12H #12 cap Transmission Status: Pending to [facility] [address] [facility] Lisinopril [Zestril] 10 mg PO DAILY #30 tab Transmission Status: Pending to [facility] Primary Care Physician: Joon Blunt MD [Primary Care Provider] - Please follow up with your Primary Care Physician in: 2 weeks Test Results: Test results from this visit will be discussed in further detail at your follow-up appointment, if applicable. Please Follow Up With: Ru Pedro MD When: 1-2 weeks Please Follow Up With: Blake Norwood MD When: as directed Proposed Discharge Date: 05/05/19
--- NOTE | 2019-05-05 15:10 | DS.PCM_ITS ---
<Niranjan Heart - Last Filed: 05/05/19 15:10> Discharge Date and Diagnosis - Problem List Patient Problems: Active and Suspected Problems Syncope and collapse (Acute) Urinary tract infection (Acute) Ventricular tachycardia (paroxysmal) (Acute) Date of Admission: 05/04/19 Date of Discharge: 05/05/19 - Primary Discharge Diagnosis Active and Suspected Problems Syncope and collapse (Acute) vasovagal response Urinary tract infection (Acute)-gram-negative rods, final culture pending Nonsustained ventricular tachycardia UTI secondary to recent catheterization for urinary retention Urinary retention secondary to BPH, and opiate use Degenerative disc disease Herpes zoster - Secondary Discharge Diagnosis Chronic Problems DDD (degenerative disc disease) (Chronic) BPH (benign prostatic hyperplasia) (Chronic) Hospital Course and Treatment Imaging Results: 05/05/19 11:17 Stress Test Echo W/Contrast [ECHO] Routine Negative for ischemia CT/Brain/Head without Contrast IMPRESSION: Chronic involutional changes of the brain. CT/CTA Chest W/WO Contrast IMPRESSION: No acute abnormality is seen. RAD/Chest PA and Lateral IMPRESSION: No acute abnormality is seen. Echo: Interpretation Summary The estimated ejection fraction is 65 %. Stage 1 diastolic dysfunction. Mild (1+) tricuspid valve insufficiency. Right ventricular systolic pressure estimated to be 32 mmHg. The study was technically difficult. There is no comparison study available. Consults: Norwood - cardiology Operations: None Procedures: 2-D Echocardiogram, Stress test Summary of Care Provided: Hospital course: The patient is a 78 year old M with past medical history of BPH, DDD, recent acute urinary retention after being placed on an opiate pain regimen requiring catheterization, who presented to the emergency room with syncope and collapse. The patient was at his orthopedic office standing at the checkout window, felt nauseous, sat down, and collapsed in the chair. He was unresponsive for about 5 to 10 minutes. EMS laid him on the floor after which he came to. He was brought to the emergency room by squad. He was brought to the emergency room and was found to have a urinary tract infection. He had negative troponin, unremarkable blood work, negative CT of the brain, negative CTA of the chest, negative chest x-ray, negative EKG. He was admitted to the PCU for syncope and UTI. He was placed on IV Rocephin for UTI. He did admit to burning with urination. He had significantly elevated resting blood pressure, however he did have orthostatic hypotension. He was started on lisinopril for his blood pressure. He developed several episodes of nonsustained V. tach on the monitor overnight. Cardiology was consulted. He was started on metoprolol. He had a 2D echo in the morning which showed EF of 65%, stage I diastolic dysfunction, normal left ventricle and no regional wall abnormalities, 1+ TVI and RVSP of 32 mmHg. He was taken for a stress echo which was unremarkable. Cardiology recommended continuation of lisinopril and metoprolol, discharged home, and follow-up in the office. Also of note his urine culture at this point shows gram-negative rods greater than 100,000. He was transitioned to Omnicef to complete a total of 7 days of therapy. He will need to follow-up with his urologist in 1 to 2 weeks. He has underlying BPH for which she is on Proscar. After urinating we did a post void bladder scan which demonstrated about 260 cc remaining in the bladder. Flomax was added to his BPH regimen. He will also follow-up with cardiology as directed, and he should follow-up with his PCP in 2 weeks. This patient was seen by Niranjan Heart PA-C under the supervision of Doctor Schulz. [] Patient Problems: Active and Suspected Problems Syncope and collapse (Acute) Urinary tract infection (Acute) Ventricular tachycardia (paroxysmal) (Acute) - Physical Exam General: Alert, Oriented x3, Cooperative HEENT: Atraumatic, PERRLA, EOMI, Normocephalic Neck: Supple, No JVD, Negative Carotid Bruits Lungs: Clear to auscultation, Normal air movement Cardiovascular: Regular rate, No murmurs Abdomen: Bowel Sounds Present, Soft, Non Tender Extremities: No edema, Capillary Refill Less than 3 Seconds Skin: No rashes, No breakdown Musculoskeletal: No Tenderness to Palpation of Joints or Extremities Neurological: Cranial nerves II-XII grossly intact Psych/Mental Status: Appropriate, Anxious, Alert and oriented to time, place, person, mood and affect Vital Signs Temp Pulse Resp BP Pulse Ox 98.4 F 88 18 139/90 H 97 05/05/19 10:18 05/05/19 10:18 05/05/19 10:18 05/05/19 10:18 05/05/19 10:18 Oxygen Delivery Method Room Air Weight: 198 lb 6.4 oz Body Mass Index (BMI) 28.4 Orthostatic Vital Signs Start: 05/04/19 18:41 Freq: q24h Status: Active Protocol: Activity Type Activity Date Activity User E-Sign Co-Sign Detail Recorded Client Recorded Date Recorded By Document 05/04/19 18:41 MARY [id number] 05/04/19 18:44 MARY 05/04/19 18:41 Orthostatic Vitals Standing -Blood Pressure (90/60-120/80) 142/96 H -Extremity Use Left Arm -Pulse Rate (60-100) 105 H Sitting -Blood Pressure (90/60-120/80) 169/105 H -Extremity Use Left Arm -Pulse Rate (60-100) 95 Lying -Blood Pressure (90/60-120/80) 163/100 H -Extremity Use Left Arm Intake and Output for Last 24 Hours 05/03/19 05/04/19 05/05/19 23:59 23:59 23:59 Intake Total 240 / 720 1200 / 1200 Output Total 1350 / 1610 260 / 260 Balance -1110 / -890 940 / 940 Microbiology Past 72 Hours 05/04/19 14:20 Urine Culture - Preliminary Urine, Clean Catch GNR lactose acetylene torch operator Laboratory Tests Past 24 Hrs 05/05/19 05:50 Phosphorus 3.9 Magnesium 2.2 Discharge Diet: Low fat/ Low Cholesterol, 2000 mg Sodium Diet Discharge Activity: Return to Normal Activity Home Medications: Medications to take at Discharge Acetaminophen [Tylenol Extra Strength] 500 - 1,000 mg PO Q8H PRN 05/04/19 Cholecalciferol (Vitamin D3) [Vitamin D3] 400 unit PO DAILY 05/04/19 Diazepam [Valium] 10 mg PO UD PRN 05/04/19 Docusate Sodium [Stool Softener] 200 mg PO DAILY 05/04/19 Finasteride [Proscar] 5 mg PO DAILY 05/04/19 Gabapentin [Neurontin] 300 mg PO BID 05/04/19 Magnesium Oxide [Magnesium] 500 mg PO DAILY 05/04/19 Niacin 500 mg PO DAILY 05/04/19 Polyethylene Glycol 3350 [Miralax] 17 gm PO DAILY 05/04/19 Valacyclovir HCl [Valtrex] 2,000 mg PO DAILY 05/04/19 Cefdinir [Omnicef [equiv]] 300 mg PO Q12H #12 cap 05/05/19 Lisinopril [Zestril] 10 mg PO DAILY #30 tab 05/05/19 Metoprolol Tartrate [Lopressor (beta pam)] 12.5 mg PO BID #30 tab 05/05/19 Tamsulosin HCl [Flomax] 0.4 mg PO DAILY@1730 #30 cap 05/05/19 Following Prescrptions Were Given to Patient: Tamsulosin HCl [Flomax] 0.4 mg PO DAILY@1730 #30 cap Transmission Status: Received by [facility] [address] [facility] Metoprolol Tartrate [Lopressor (beta pam)] 12.5 mg PO BID #30 tab Transmission Status: Received by [facility] [facility] Cefdinir [Omnicef [equiv]] 300 mg PO Q12H #12 cap Transmission Status: Received by [facility] [facility] Lisinopril [Zestril] 10 mg PO DAILY #30 tab Transmission Status: Received by [facility] [place] Primary Care Physician: Joon Blunt MD [Primary Care Provider] - Please follow up with your Primary Care Physician in: 2 weeks Please Follow Up With: Ru Pedro MD When: 1-2 weeks Please Follow Up With: Blake Norwood MD When: as directed Disposition: Home Minutes spent on discharge:: 35 Patient Condition:: Stable Medical Necessity - Tobacco Use Smoking Status: Former smoker Tobacco Use: Chew, Pipe Meaningful Use Info Meaningful Use Diagnoses (Choose all that apply): None applicable <Sergio Schulz - Last Filed: 05/05/19 15:27> Discharge Date and Diagnosis - Primary Discharge Diagnosis Active and Suspected Problems Syncope and collapse (Acute) Urinary tract infection (Acute) Ventricular tachycardia (paroxysmal) (Acute) - Secondary Discharge Diagnosis Chronic Problems DDD (degenerative disc disease) (Chronic) BPH (benign prostatic hyperplasia) (Chronic) Hospital Course and Treatment Imaging Results: 05/05/19 11:17 Stress Test Echo W/Contrast [ECHO] Routine Summary of Care Provided: This patient was seen in conjunction with Niranjan Heart PA-C . I have independently interviewed and examined the patient and reviewed pertinent historical, laboratory, and other data. Please refer to Niranjan holguin for details of this patient's presentation, findings, and recommendations. I have reviewed Niranjan holguin and concur with documented findings. In brief, patient is a 78-year-old gentleman admitted following a syncopal episode. Patient was admitted to monitored bed for subsequent management. Underwent further evaluation with a 2D echo demonstrated EF of 65% with normal left ventricular function and no regional wall motion abnormalities. He was seen in consultation by cardiology Dr. Norwood who recommended for patient undergo a nuclear stress test which was negative for stress-induced ischemia Assessment: 1. Syncopal episode 2. Acute cystitis 3. BPH with bladder outlet obstruction 4. Recent herpes zoster involving the right lower extremity 5. Degenerated joint disease with chronic back pain 6. Essential hypertension Recommendations: 1. I have discussed the results of my overview and impressions with the patient 2. Options for management were reviewed - Physical Exam Vital Signs Temp Pulse Resp BP Pulse Ox 98.4 F 88 18 139/90 H 97 05/05/19 10:18 05/05/19 10:18 05/05/19 10:18 05/05/19 10:18 05/05/19 10:18 Oxygen Delivery Method Room Air Weight: 89.993 kg Body Mass Index (BMI) 28.4 Orthostatic Vital Signs Start: 05/04/19 18:41 Freq: q24h Status: Active Protocol: Activity Type Activity Date Activity User E-Sign Co-Sign Detail Recorded Client Recorded Date Recorded By Document 05/04/19 18:41 MARY [id number] 05/04/19 18:44 MARY 05/04/19 18:41 Orthostatic Vitals Standing -Blood Pressure (90/60-120/80) 142/96 H -Extremity Use Left Arm -Pulse Rate (60-100) 105 H Sitting -Blood Pressure (90/60-120/80) 169/105 H -Extremity Use Left Arm -Pulse Rate (60-100) 95 Lying -Blood Pressure (90/60-120/80) 163/100 H -Extremity Use Left Arm Intake and Output for Last 24 Hours 05/03/19 05/04/19 05/05/19 23:59 23:59 23:59 Intake Total 240 / 720 1200 / 1200 Output Total 1350 / 1610 260 / 260 Balance -1110 / -890 940 / 940 Microbiology Past 72 Hours 05/04/19 14:20 Urine Culture - Preliminary Urine, Clean Catch GNR lactose acetylene torch operator Laboratory Tests Past 24 Hrs 05/05/19 05:50 Phosphorus 3.9 Magnesium 2.2
--- NOTE | 2019-05-05 15:48 | CASEMGMT ---
SW completed Healthcare POA and Healthcare LW with patient. Copies made and given to patient along with originals. A copy of was also placed in patient's chart. Jennifer SALINAS MSW
--- NOTE | 2019-05-05 16:19 | CASEMGMT ---
Addendum entered by Mayi Mena 05/05/19 16:25: Assessment done @ 1320 Original Note: RN CM GARNET[facility] ROOM WORKER CM to room to meet with patient for initial transition planning/care coordination assessment. KEILY CASPER introduced self and role at [facility]. Pt voices understanding and consents to assessment at this time. Pt resting in bed in no distress at this time. Pt is A/O at this time and answers all questions appropriately. Care providers, pharmacy, and demographics verified/updated at this time. PCP: Dr Blunt Specialists: Dr Archuleta--urologist in [place] Preferred [facility]acy: [facility] Insurance: BRAIN Prescription Benefit: Yes Living Will/HPOA: Pt does not currently have LW/HCPOA and states is interested in talking with SW. Consult order placed for SW for AD. LNOK: Living Arrangements: Lives with in 2-story home. See PT/OT notes. Transportation: Pt states has not been driving d/t being on pain meds. provides transportation and will be taking pt home @ D/C DME: States has the following DME: BSC, cane, rails/grab bars, walker Pt states no need for further DME at this time. HHC/SNF: No history of either and denies needs. No needs identified. Pt states has an appt to go to [facility] next week and he wishes to continue with OP therapy as planned prior to admission. Pt wishes to return home and states has no concerns with going home at time of discharge. CM to follow for any further discharge planning/needs. Pt voices no further concerns/needs at this time. Advised pt to ask for CM if any further questions/concerns/needs arise. Voices understanding. PLAN: Home with spousal support and discharge plans in place. Benjamín PACHECO RN, CM
== END 2019-05-05 17:43 | disposition home or self-care (01) | DRG 312 ==
LOC: ED 15:57 → PCU 16:02
PROVIDERS: Internal Medicine; Admitting Provider Internal Medicine; Emergency Provider Emergency Medicine; Family Provider Family Medicine; PCP Family Medicine; Referring Provider Internal Medicine; Visit Provider Internal Medicine
DX: R55 Syncope and collapse (principal); T83.511A Infection and inflammatory reaction due to indwelling urethral catheter, initial encounter; N30.00 Acute cystitis without hematuria; I47.2 Ventricular tachycardia; N13.8 Other obstructive and reflux uropathy; N40.1 Benign prostatic hyperplasia with lower urinary tract symptoms; R33.8 Other retention of urine; B02.9 Zoster without complications; M19.90 Unspecified osteoarthritis, unspecified site; G89.29 Other chronic pain; I10 Essential (primary) hypertension; Z79.891 Long term (current) use of opiate analgesic; Z79.899 Other long term (current) drug therapy; Z87.891 Personal history of nicotine dependence
CPT/HCPCS: 36415; 70450; 71046; 71275; 80053; 81001; 83735; 84100; 84484; 85025; 85610; 85730; 87077; 87086; 87088; 87186; 93005; 93017; 93306; 93350; 97162; 97166; 99285; J7040; J7050; Q9957; Q9967; A4216; C8928

== ENCOUNTER → 2019-12-30 10:58 | Outpatient (CLI) | payer MEDICARE, SELFPAY ==
[2019-12-02 14:42] VITALS: BMI 29.7
[2019-12-30 11:55] LABS: AST(SGOT) 29 U/L (15-37); Alanine Aminotransfer ALT/SGPT 38 U/L (16-61); Alkaline Phosphatase 61 U/L (45-117); Cholesterol 189 mg/dL (200); Globulin 3.1 g/dL (2.2-4.2); High Density Lipoprotein 41 mg/dL; Protein, Total 7.1 g/dL (6.4-8.2); Triglycerides 235 mg/dL; Very Low Density Lipoprotein 47 mg/dL (5-40)
== END ==
PROVIDERS: PCP Family Medicine; Referring Provider Internal Medicine Cardiovascular Disease; Visit Provider Internal Medicine Cardiovascular Disease
DX: E78.5 Hyperlipidemia, unspecified (principal); I47.2 Ventricular tachycardia; R55 Syncope and collapse
CPT/HCPCS: 36415; 80061; 80076

== ENCOUNTER → 2020-05-09 15:07 | Outpatient (CLI) | payer MEDICARE, SELFPAY ==
[2019-12-02 14:42] VITALS: BMI 29.7
[2020-05-09 16:07] LABS: Creatinine, Serum 0.81 mg/dL (0.70-1.30); EST Glomerular Filtration Rate 98 mL/min (>60); Est Glom Filt Rate - Afr Amer 119 mL/min (>60)
== END ==
PROVIDERS: PCP Family Medicine; Referring Provider Orthopaedic Surgery; Visit Provider Orthopaedic Surgery
DX: N28.9 Disorder of kidney and ureter, unspecified (principal)
CPT/HCPCS: 36415; 82565

== ENCOUNTER 2020-12-27 12:00 | Outpatient (RCR) | payer MEDICARE, SELFPAY ==
[2020-05-25 15:35] VITALS: BMI 28.4
--- NOTE | 2020-07-07 09:10 | HP.PTEVAL ---
Patient's Visit Information ANAMIKA KATHLEEN is a 79 year old M referred to Physical Therapy by Dr. Presley Pierce DO with a diagnosis of Gait abnormality. Date of Evaluation: 07/07/20 Physical Therapist: Marcos Munroe, PT, ATC - Visit Plan Frequency: 2x /Week Duration: 4 Weeks Plan: Balance and proprio ex's, core strengthening, R ankle DF strengthening, nustep, and HEP - Subjective Pt reports he has had a balance deficit for a couple years. Pt notes he had L/S surgery in August of 2019. Pt notes he had R LE numbness and drop foot which caused his balance to be poor. Pt reports his balance has worsened since having his surgery. Pt notes he has lost sensation in his feet, which makes losing his balance more common now. Pt reports when he looks up, he often feels like he is going to lose his balance. Pt also notes if he turns quickly he will lose his balance. Pt reports he has not had any recent falls. Pt reports he has passed out twice in the past with unknown origin. Pt reports he feels strong in his legs. Pt reports his LB is still sore if he stands for a long time or sits for prolonged periods. - Objective Neuro: B LE sensation is WNL to light touch. B patellar reflex= 1/3. MMT: B LE's are 5/5 throughout with exception to R ankle DF= 3/5. FGA: 19/30 indicating moderate risk of falling - Balance Scores Functional Gait Assessment Score: 19 % Disability: 36.6700 - Goals Goal 1:: Increase R ankle DF strength x 1 grade to aid with restoring a more normalized gait pattern Goal Time Frame: 4-6 Weeks Goal 2:: Increase FGA score x 3-5 points to aid with preventing future falls Goal Time Frame: 4-6 Weeks Goal 3:: I with HEP Goal Time Frame: 4-6 Weeks - Rehabilitation Potential Physical Therapy Diagnosis: Difficulty with balance and R ankle dorsiflexion weakness secondary to Hx of L/S disc degeneration Rehabilitation Potential: Good - Anticipated Interventions Patient/Client Instruction: Educate patient on: Condition, Plan of Care For the Purpose of:: To improve self management Therapeutic Exercise to Include: Strength training, Endurance training, Balance training, Gait and locomotor training, Dynamic Lumbar Stabilization For the Purpose of:: To improve muscle performance and motor function, To improve gait and locomotor functions Thank you for the opportunity to evaluate your patient. For Medicare and Medicare HMO plans, please review the plan of care and approve it. It will need to be FAXED BACK to us at [phone] for Medicare purposes. For Medicare only, by signing this I certify the plan of care. Please let me know if there are questions or concerns regarding this plan of care. Physician Signature: Date:
--- NOTE | 2020-08-04 10:57 | HP.PTREVAL ---
Dr. Presley Pierce, DO, It has been my pleasure to treat ANAMIKA KATHLEEN over the last 9 visits for Gait abnormality. Please see the progress note below for an update on the physical therapy plan of care! Subjective: Pt reports this is definitely helping Objective/Function: R ankle DF strength is grossly 3/5. FGA score is 19/30. Pt is progressing well toward Rx goals Plan Plan: Balance and proprio ex's, core strengthening, R ankle DF strengthening, nustep, and HEP Goals Goal 1:: Increase R ankle DF strength x 1 grade to aid with restoring a more normalized gait pattern Goal Time Frame: 4-6 Weeks Goal 2:: Increase FGA score x 3-5 points to aid with preventing future falls Goal Time Frame: 4-6 Weeks Goal 3:: I with HEP Goal Time Frame: 4-6 Weeks Anticipated Interventions Patient/Client Instruction: Educate patient on: Condition, Plan of Care For the Purpose of:: To improve self management Therapeutic Exercise to Include: Strength training, Endurance training, Balance training, Gait and locomotor training, Dynamic Lumbar Stabilization For the Purpose of:: To improve muscle performance and motor function, To improve gait and locomotor functions Please do not hesitate to contact me at [phone] by phone or if you have questions or concerns regarding this new plan of care! Sincerely, Marcos Munroe, PT, ATC
--- NOTE | 2020-09-27 14:41 | HP.PTREVAL ---
Dr. Presley Pierce, DO, It has been my pleasure to treat ANAMIKA KATHLEEN over the last 29 visits for Gait abnormality. Please see the progress note below for an update on the physical therapy plan of care! Subjective: Patient has noticed improvement wit.h leg strengthening and back . Patient balance is progressing.No falls Objective/Function: POSTURE: mild foward posture. GAIT: ambulates with staight gait 2 ponts slightly unsteady with right decrease DF. MMT:4/5 quads/hams 4/5,hip flexion 4-/5 right ankle DF 3/5.left 4/5 Plan Plan: Cont with balance and proprio ex's, core strengthening, R ankle DF strengthening, nustep, and HEP Goals Goal 1:: Increase R ankle DF strength x 1 grade to aid with restoring a more normalized gait pattern Goal Time Frame: 4-6 Weeks Goal Progress: Progressing Goal 2:: Increase FGA score x 3-5 points to aid with preventing future falls Goal Time Frame: 4-6 Weeks Goal Progress: Progressing Goal 3:: I with HEP Goal Time Frame: 4-6 Weeks Goal Progress: Progressing Anticipated Interventions Patient/Client Instruction: Educate patient on: Condition, Plan of Care For the Purpose of:: To improve self management Therapeutic Exercise to Include: Strength training, Endurance training, Balance training, Gait and locomotor training, Dynamic Lumbar Stabilization For the Purpose of:: To improve muscle performance and motor function, To improve gait and locomotor functions Please do not hesitate to contact me at [phone] by phone or if you have questions or concerns regarding this new plan of care! Sincerely, Nain Brar, PT, Cert MDT, OCS
--- NOTE | 2020-11-03 11:10 | HP.PTREVAL ---
Dr. Presley Pierce, DO, It has been my pleasure to treat ANAMIKA KATHLEEN over the last 40 visits for Gait abnormality. Please see the progress note below for an update on the physical therapy plan of care! Subjective: I am not where i need to be Objective/Function: R ankle MMT 3/5. Pt is able to ambulate greater than 1000 feet. FGA . Pt is progressing well toward Rx goals Plan Plan: Cont with POC focusing on R ankle strengthening, balance, and core strengthening Goals Goal 1:: Increase R ankle DF strength x 1 grade to aid with restoring a more normalized gait pattern Goal Time Frame: 4-6 Weeks Goal Progress: Progressing Goal 2:: Increase FGA score x 3-5 points to aid with preventing future falls Goal Time Frame: 4-6 Weeks Goal Progress: Progressing Goal 3:: I with HEP Goal Time Frame: 4-6 Weeks Goal Progress: Progressing Anticipated Interventions Patient/Client Instruction: Educate patient on: Condition, Plan of Care For the Purpose of:: To improve self management Therapeutic Exercise to Include: Strength training, Endurance training, Balance training, Gait and locomotor training, Dynamic Lumbar Stabilization For the Purpose of:: To improve muscle performance and motor function, To improve gait and locomotor functions Please do not hesitate to contact me at [phone] by phone or if you have questions or concerns regarding this new plan of care! Sincerely, Marcos Munroe, PT, ATC
--- NOTE | 2020-12-11 11:26 | HP.PTREVAL ---
Dr. Presley Pierce, DO, It has been my pleasure to treat ANAMIKA KATHLEEN over the last 53 visits for Gait abnormality. Please see the progress note below for an update on the physical therapy plan of care! Subjective: Pt reports that he feels significantly stronger now, but notes his balance is still bad. Objective/Function: FGA= 27/30. R ankle DF= 3/5. Pt is unable to SLS on either LE for greater than 2 seconds until LOB indicating poor static balance. Plan Plan: Cont 2 times per week for 2 weeks to edu pt on HEP of LE balance ex's and core strenthening Goals Goal 1:: Increase R ankle DF strength x 1 grade to aid with restoring a more normalized gait pattern Goal Time Frame: 4-6 Weeks Goal Progress: Progressing Goal 2:: Increase FGA score x 3-5 points to aid with preventing future falls Goal Time Frame: 4-6 Weeks Goal Progress: Goal Met Goal 3:: I with HEP Goal Time Frame: 4-6 Weeks Goal Progress: Progressing Anticipated Interventions Patient/Client Instruction: Educate patient on: Condition, Plan of Care For the Purpose of:: To improve self management Therapeutic Exercise to Include: Strength training, Endurance training, Balance training, Gait and locomotor training, Dynamic Lumbar Stabilization For the Purpose of:: To improve muscle performance and motor function, To improve gait and locomotor functions Please do not hesitate to contact me at [phone] by phone or if you have questions or concerns regarding this new plan of care! Sincerely, Marcos Munroe, PT, ATC
--- NOTE | 2020-12-27 12:59 | HP.PTDCSUM ---
It has been my pleasure to treat ANAMIKA KATHLEEN referred by Dr. Presley Pierce DO, with the diagnosis of Gait abnormality for a total of 57 visit(s). Discharge Date: Please see the following information for a summary of their discharge status. Subjective: I am doing much better at this time LBP Pain Intensity (Out of 10): 0 % Improvement: 90 Objective/Function: R ankle DF MMT= 3+/5. FGA= 27/30. Pt is now I with HEP. Rx goals achieved Goal 1:: Increase R ankle DF strength x 1 grade to aid with restoring a more normalized gait pattern Goal Progress: Goal Met Goal 2:: Increase FGA score x 3-5 points to aid with preventing future falls Goal Progress: Goal Met Goal 3:: I with HEP Goal Progress: Progressing Plan: Discharge If there are questions or concerns regarding this patient's physical therapy, please feel free to call me at [phone]. Thank you for the referral of this patient. Sincerely, Marcos Munroe, PT, ATC
== END 2020-12-27 14:44 | disposition home or self-care (01) ==
LOC: PT 12:00
PROVIDERS: PCP Family Medicine; Referring Provider Orthopaedic Surgery; Visit Provider Orthopaedic Surgery
DX: M51.36 Other intervertebral disc degeneration, lumbar region (principal); R26.89 Other abnormalities of gait and mobility
CPT/HCPCS: 97110; 97161; 97164; 97530

== ENCOUNTER → 2024-02-10 | Outpatient (CLI) | payer MEDICARE, SELFPAY | END | disposition home or self-care (01) | PROVIDERS: PCP Family Medicine; Referring Provider Internal Medicine Cardiovascular Disease; Visit Provider Internal Medicine Cardiovascular Disease | DX: I44.0 Atrioventricular block, first degree (principal) | CPT/HCPCS: 93225; 93226 ==

== ENCOUNTER → 2024-02-18 | Outpatient (CLI) | payer MEDICARE, SELFPAY ==
--- NOTE | 2024-02-18 14:52 | STRESSREP_ITS ---
Stress Test Report Date: 02/18/2024 Procedure: Pharmacologic stress nuclear imaging study Indications: Dyspnea on exertion Consent: Per the patient Procedure: The patient underwent pharmacologic (Regadenoson 0.4mg ) evaluation with a peak heart rate of 70 beats per minute (51%predicted maximal heart rate) and a peak blood pressure of 146/88 mmHg. The baseline ECG demonstrated sinus rhythm with first-degree AV block. The peak pharmacologic ECG demonstrated no ischemic changes. There were no cardiac dysrhythmias pretest, during pharmacologic infusion, or recovery. There was no complaint of chest discomfort during pharmacologic infusion or recovery. The patient was injected with 12.8 millicuries of technetium 99m Cardiolite and subsequently rest SPECT Cardiolite nuclear imaging was obtained in the horizontal long, vertical long, and short axis views. The patient underwent pharmacologic (Regadenoson) evaluation. The patient was injected with 41 millicuries of technetium 99m Cardiolite and subsequently stress SPECT Cardiolite nuclear imaging was obtained in the horizontal long, vertical long, and short axis views. A gated Cardiolite study at peak stress was obtained. The examination was stopped secondary to completion of protocol. Rest and stress SPECT Cardiolite nuclear imaging status post realignment, normalization, and attenuation correction demonstrate no fixed or reversible perfusion defects. There is end systolic thickening and brightening. The gated Cardiolite study demonstrates myocardial thickening and inward wall motion. The reported LVEF is 69%. Impression: 1. Pharmacologic (Regadenoson) evaluation 2. Peak pharmacologic ECG with no ischemic changes. 3. There were no cardiac dysrhythmias pretest, during pharmacologic infusion, or recovery. 5. Rest and stress SPECT Cardiolite nuclear imaging demonstrate relative uniform tracer uptake and myocardial perfusion appearing within normal limits. 6. The gated Cardiolite study reports an LVEF of 69%. This note was generated with [employer] software. It may contain incorrect words, spelling, and punctuation that were not noted in checking the note before signing.
== END | disposition home or self-care (01) ==
PROVIDERS: PCP Family Medicine; Referring Provider Internal Medicine Cardiovascular Disease; Visit Provider Internal Medicine Cardiovascular Disease
DX: I44.0 Atrioventricular block, first degree (principal); I49.1 Atrial premature depolarization; R07.9 Chest pain, unspecified; I10 Essential (primary) hypertension; R06.09 Other forms of dyspnea
CPT/HCPCS: 78452; 93017; A9500; A4216; J2785

== ENCOUNTER → 2024-02-27 | Outpatient (CLI) | payer MEDICARE, SELFPAY ==
--- NOTE | 2024-02-27 12:38 | ECHOCS_ITS ---
Reason For Study: Syncope Procedure This was a 2D Doppler, Color Flow transthoracic echocardiogram. The study was technically difficult. Contrast injection was performed. Exam performed in department. Left Ventricle Normal LV size. The estimated ejection fraction is 70 %. No evidence for diastolic dysfunction. No regional wall motion abnormalities noted. Right Ventricle Normal right ventricle. Normal systolic function. Atria Normal left atrium. Normal right atrium. No doppler evidence for ASD. Mitral Valve There is no mitral valve stenosis. Trivial mitral valve insufficiency. Tricuspid Valve There is no tricuspid stenosis. Unable to estimate RV systolic pressure due to inadequate jet, pulmonary artery pressure probably normal. Aortic Valve Trisinus/trileaflet aortic valve. Aortic sclerosis, no stenosis. There is no aortic stenosis. No aortic valve insufficiency. Pulmonic Valve There is no pulmonic valvular stenosis. No pulmonic valve insufficiency. Great Vessels Normal aortic root. Pericardium/Pleural No pericardial effusion. Medication 22 gauge I.V. with prn adaptor inserted into right arm. Diluted definity 3ml given slow IV push to enhance endocardial definition. MMode/2D Measurements & Calculations LVIDd: 4.8 cm IVSd: 1.1 cm Ao root diam: 3.6 cm LVIDs: 3.3 cm LVPWd: 1.1 cm LA dimension: 4.2 cm RVDd: 3.5 cm FS: 30.4 % LAV(MOD-bp): 70.6 ml LVAd ap4: 37.9 cm2 SV(MOD-sp4): 66.4 ml LAV(MOD-bp) Indexed: 34.4 ml/m2 LVLd ap4: 9.6 cm LAV(MOD-sp2): 62.1 ml EDV(MOD-sp4): 122.3 ml LAV(MOD-sp4): 72.2 ml EDV(sp4-el): 127.1 ml LVAs ap4: 22.9 cm2 LVLs ap4: 8.0 cm ESV(MOD-sp4): 55.9 ml ESV(sp4-el): 55.2 ml EF(MOD-sp4): 54.3 % EF(sp4-el): 56.6 % SV(sp4-el): 72.0 ml LA A4 area: 23.3 cm2 TAPSE: 1.5 cm Time Measurements MV dec time: 0.27 sec Doppler Measurements & Calculations MV E max isaiah: 80.3 cm/sec Lat Peak E' Isaiah: 10.1 cm/sec Med Peak E' Isaiah: 8.4 cm/sec MV A max isaiah: 104.5 cm/sec E/E' lat: 8.0 E/E' med: 9.5 MV E/A: 0.77 MV V2 max: 113.2 cm/sec MV P1/2t max isaiah: 84.7 cm/sec Ao V2 max: 115.1 cm/sec MV max P.1 mmHg MV P1/2t: 83.5 msec Ao max P.4 mmHg MV V2 mean: 56.7 cm/sec Ao V2 mean: 80.3 cm/sec MV mean P.5 mmHg MV dec slope: 296.9 cm/sec2 Ao mean P.0 mmHg MV V2 VTI: 34.4 cm MVA(P1/2t): 2.6 cm2 Ao V2 VTI: 25.5 cm AV (velocity ratio): 0.75 LV V1 max: 93.8 cm/sec MR max isaiah: 277.5 cm/sec PA V2 max: 88.8 cm/sec LV V1 max P.6 mmHg MR max P.8 mmHg LV V1 mean P.8 mmHg LV V1 mean: 61.3 cm/sec LV V1 VTI: 19.2 cm TR max isaiah: 208.1 cm/sec TR max P.3 mmHg ECHO/Echo Complete W/ Contrast Interpretation Summary The estimated ejection fraction is 70 %. No evidence for diastolic dysfunction. Trivial mitral valve insufficiency. Ordering Physician: Sujey Vega Referring Physician: Sujey Vega Performed By: Jonnathan Ko RCS
== END | disposition home or self-care (01) ==
LOC: CVS 12:36
PROVIDERS: PCP Family Medicine; Referring Provider Internal Medicine Cardiovascular Disease; Visit Provider Internal Medicine Cardiovascular Disease
DX: R55 Syncope and collapse (principal)
CPT/HCPCS: 93306; Q9957; A4216; C8929

== ENCOUNTER → 2024-07-29 | Outpatient (CLI) | payer MEDICARE, SELFPAY ==
--- NOTE | 2024-07-29 14:04 | CDU_ITS ---
Reason For Study: HYPERTENSION Rt. Velocities/BP Lt. Velocities/BP Prox CCA 53.5/9.1 cm/sec. Prox CCA 69.7/18.2 cm/sec. Mid CCA 61.0/12.8 cm/sec. Mid CCA 51.4/17.4 cm/sec. Dist CCA 45.9/15.4 cm/sec. Dist CCA 60.1/19.1 cm/sec. Prox ICA 55.5/12.7 cm/sec. Prox ICA 40.0/10.4 cm/sec. Mid ICA 50.5/15.6 cm/sec. Mid ICA 53.1/13.0 cm/sec. Dist ICA 50.5/18.2 cm/sec. Dist ICA 32.2/9.1 cm/sec. Rt. ICA/CCA = 50.5/61.0=0.8. Lt. ICA/CCA = 53.1/51.4=1.0. Prox ECA 53.7/9.2 cm/sec. Prox ECA 54.0/11.3 cm/sec. Rt. Vert. 37.4/9.5 cm/sec. Lt. Vert. 38.3/13.9 cm/sec. Right Extracranial There is intimal thickening but no significant atherosclerotic plaque noted in the right common carotid artery. There is intimal thickening but no significant atherosclerotic plaque noted in the right internal carotid artery. There is intimal thickening but no significant atherosclerotic plaque noted in the right external carotid artery. The right external carotid artery is not well visualized. Antegrade flow is noted in the right vertebral artery. Left Extracranial There is intimal thickening but no significant atherosclerotic plaque noted in the left common carotid artery. There is heterogeneous, irregular atherosclerotic plaque noted in the left internal carotid artery. There is homogeneous, smooth atherosclerotic plaque noted in the left external carotid artery. Antegrade flow is noted in the left vertebral artery. Procedure Carotid Duplex [id number]. This is a Carotid Duplex examination using B-mode, color flow and specral Doppler. The study was technically difficult. Exam performed in department. VL/Carotid Duplex Ultrasound Interpretation Summary Normal right extracranial internal carotid. Mild (<50%) stenosis left extracranial internal carotid. Patent and antegrade vertebrals bilaterally. Ordering Physician: Sujey Vega Referring Physician: Joon Blunt Performed By: Miranda Guerrier RDCS, RVT
== END | disposition home or self-care (01) ==
LOC: CVS 14:02
PROVIDERS: PCP Family Medicine; Referring Provider Internal Medicine Cardiovascular Disease; Visit Provider Internal Medicine Cardiovascular Disease
DX: I10 Essential (primary) hypertension (principal); R55 Syncope and collapse
CPT/HCPCS: 93880